=== PATIENT | female | born 1985 | race Caucasian/White ===

== ENCOUNTER 2017-01-21 15:06 | Emergency (ER) | payer OTHER, SELFPAY ==
[2017-01-21 15:36] LABS: #Eosinphils 0.2 thou/uL (0.0-0.7); #Lymphocytes 1.4 thou/uL (1.20-3.40); #Monocytes 0.5 thou/uL (0.11-0.59); #Neutrophils 4.5 thou/uL (1.40-6.50); %Basophils 0.6 % (0.0-1.0); %Eosinophils 3.5 % (0.0-10.0); %Lymphocytes 21.8 % (21.0-51.0); %Monocytes 6.9 % (0.0-10.0); Hematocrit 40.1 % (36.0-47.0); White Blood Cell (WBC) Count 6.6 thou/uL (4.8-10.8)
[2017-01-21 15:37] LABS: Bilirubin Negative (Negative); Blood, Urine Negative (Negative); Glucose, Urine (Dipstick) Negative (Negative); Ketone, Urine Negative (Negative); Nitrite Negative (Negative); Protein, Urine (Dipstick) Negative (Neg-Trace); Urobilinogen 0.2 mg/dL (0.2-1.0)
[2017-01-21 15:58] LABS: ALT (SGPT) 13 U/L (8-55); AST (SGOT) 14 U/L (5-34); Alkaline Phosphatase 40 U/L (40-150); Anion Gap 11 mmol/L (10-20); BUN (Urea Nitrogen) 7 mg/dL (7.0-18.7); Bilirubin, Total 0.3 mg/dL (0.2-1.2); Calc. Creatinine Clearance 0 mL/min (70-130); Calcium 9.5 mg/dL (7.8-10.44); Carbon Dioxide 25 mmol/L (22-29); Chloride 105 mmol/L (98-107); Estimated GFR-MDRD 61; Globulin 3.1 g/dL (2.4-3.5); Lipase 30 U/L (8-78); Protein, Total 7.4 g/dL (6.0-8.3)
[2017-01-21] MEDS ORDERED: Famotidine/PF 20 mg/2ml Vial ONE (16:20)
[2017-01-21] MEDS ORDERED: Metoclopramide HCl 10 MG/2 ML VIAL ONE (16:20)
[2017-01-21] MEDS ORDERED: Famotidine/PF 20 mg/2ml Vial SLOW IVP SCH (16:45)
--- NOTE | 2017-01-21 17:01 | ULT ---
ULTRASOUND ABDOMEN LIMITED: (RIGHT UPPER QUADRANT) HISTORY: 31-year-old female with right upper quadrant abdominal pain and emesis. FINDINGS: The gallbladder has normal wall thickness and has no evidence of gallstones or sludge. The hepatic e chogenicity is normal. The right kidney has normal echogenicity and has no hydronephrosis. The panc reas is visualized, although ultrasound is relatively insensitive for pancreatic pathology compared t o CT and MRI. There is no biliary dilation. The common duct caliber is 3 mm. IMPRESSION: Normal. alise POS: [facility]
[2017-01-21] MEDS ORDERED: Acetaminophen 325 MG/10.15 ML UDCUP ONE (17:54)
[2017-01-21] MEDS ORDERED: Famotidine 20 MG TAB ONE (17:54)
[2017-01-21] MEDS ORDERED: Metoclopramide HCl 10 MG TAB PO SCH (18:15)
== END 2017-01-21 18:19 | disposition home or self-care (01) ==
LOC: ERS 15:06
DX: O21.9 Vomiting of pregnancy, unspecified (principal); O99.89 Other specified diseases and conditions complicating pregnancy, childbirth and the puerperium; R19.7 Diarrhea, unspecified; O99.511 Diseases of the respiratory system complicating pregnancy, first trimester; J45.909 Unspecified asthma, uncomplicated
CPT/HCPCS: 36415; 76705; 80053; 81003; 83690; 85025; 96361; 96374; J2765; S0028

== ENCOUNTER 2017-11-20 12:36 | Outpatient (CLI) | payer OTHER ==
--- NOTE | 2017-11-20 14:41 | RAD ---
3 VIEWS LUMBAR SPINE: Date: 11/20/17 HISTORY: Fall 1.5-2 years ago resulting in herniated disc in lower back. Patient complains of severe right but tock and leg pain, with pain extending down right lower extremity. COMPARISON: Single lateral view of lumbar spine dated 03/11/16. FINDINGS: Vertebral body heights are within normal limits. No fracture or subluxation is seen on provided later al images. There is no abnormal translational motion seen between the flexion and extension views. No fracture is seen on the single provided lateral images. There has been no interval change compared t o the prior exam. IMPRESSION: Normal alignment of the lumbar spine with preservation of vertebral body heights. POS: [facility]
--- NOTE | 2017-11-20 15:43 | MRI ---
MRI LUMBAR SPINE NONCONTRAST: DATE: 11/20/17 HISTORY: 32-year-old female with M54.16 lumbar radiculopathy. COMPARISON: none FINDINGS: For the purposes of this report, it will be assumed that there are 5 lumbar-type vertebrae. The vert ebral body heights are maintained. Bilateral extrarenal pelves are dilated, especially the right. There is no significant dilation of th e renal calices. Perivertebral spaces are unremarkable. Bone marrow signal is normal. There is no spondylolisthesis. There is a mild lateral curvature. Conus medullaris terminates at L1-2. There is an incidental finding of minimal dilation of the central can al of the lower spinal cord isolated to the conus medullaris (minimal hydromyelia). There is no syrin x superior to that. The cauda equina is arranged in a symmetrical, normal distribution throughout the thecal sac. The findings by individual levels are as follows: T12-L1: Normal. L1-2: Normal. L2-3: Normal. L3-4: Normal. L4-5: Mild to moderate disc space narrowing. Disc desiccation. Diffuse disc bulge. Central and right paracentral focal small disc herniation which abuts and minimally displaces the right L5 nerve root. No central spinal canal stenosis despite this. No high grade neural foraminal stenosis. No high grad e degenerative facet changes. L5-S1: Mild to moderate disc space narrowing. Disc desiccation and diffuse disc bulge. Superimposed central and bilateral paracentral small disc herniation which indents the ventral aspect of the theca l sac without displacing nerve roots. No central stenosis. Mild to moderate bilateral neural foramina l stenosis. Mild bilateral degenerative facet changes. IMPRESSION: 1. Mild to moderate degenerative disc disease, and mild facet osteoarthrosis, at L4-5 and L5-S1. 2. At L4-5, there is a central and right paracentral focal disc herniation which mildly displaces th e right L5 nerve root. 3. Mild to moderate bilateral neural foraminal stenosis at L5-S1. 4. All levels superior to L4-5 are essentially normal, except for mild lateral curvature. JN R POS: [facility]
== END 2017-11-20 12:37 | disposition home or self-care (01) ==
LOC: TBSIIMAG 12:36
PROVIDERS: ATTEND Neurological Surgery
DX: M51.16 Intervertebral disc disorders with radiculopathy, lumbar region (principal); M47.26 Other spondylosis with radiculopathy, lumbar region; M51.37 Other intervertebral disc degeneration, lumbosacral region; M47.897 Other spondylosis, lumbosacral region; M99.83 Other biomechanical lesions of lumbar region
CPT/HCPCS: 72100; 72148

== ENCOUNTER 2018-02-07 19:22 | Emergency (ER) | payer OTHER ==
--- NOTE | 2018-02-07 20:09 | RAD ---
CHEST TWO VIEWS: HISTORY: Cough. FINDINGS: Heart size and mediastinum are within normal limits. Lungs are clear of infiltrates. There are slig ht scoliotic changes of the spine, convexed to the right. IMPRESSION: No active intrathoracic disease. POS: [facility]
== END 2018-02-07 21:16 | disposition home or self-care (01) ==
LOC: ERS 19:22
DX: J06.9 Acute upper respiratory infection, unspecified (principal)
CPT/HCPCS: 71046

== ENCOUNTER 2018-04-26 13:42 | Outpatient (CLI) | payer OTHER ==
--- NOTE | 2018-04-26 15:52 | RAD ---
CERVICAL SPINE 4 VIEWS: AP view obtained. Lateral views were obtained in the neutral, flexion, and extension positions. INDICATION: Neck pain. FINDINGS: Cervical vertebrae maintain normal height and alignment. Disk spaces are maintained. No abnormal gutierrez bluxation is seen with flexion or extension. Minimal degenerative spurring noted. IMPRESSION: Unremarkable cervical spine. POS: [facility]
--- NOTE | 2018-04-27 16:37 | MRI ---
MRI CERVICAL SPINE WITHOUT CONTRAST 04/27/18 HISTORY: Cervical pain. COMPARISON: Radiograph 04/26/18. FINDINGS: The cerebellar tonsils are at the level of the foramen magnum. Moderate reversal of normal cervical l ordosis likely positional. No cervical adenopathy. Flow voids are maintained. No marrow infiltrative process. Cord signal is normal. The levels are as follows: C2-3: Normal disc. No neural foraminal or spinal canal narrowing. C3-4: Normal disc. No neural foraminal or spinal canal narrowing. C4-5: Normal disc. No neural foraminal or spinal canal narrowing. Low grade uncinate process hypertro phy. C5-6: There are bilateral subforaminal and posterior disc osteophyte complexes, larger on the right. This causes mild bilateral neural foraminal narrowing. No significant facet arthrosis. Minimal effac ement of the ventral CSF space although the canal still measures approximately 1 cm. C6-7: Mild disc desiccation. Minimal disc osteophyte complex, broad based, without significant neural foraminal or spinal canal narrowing. IMPRESSION: Low grade spondylosis centered at C5-6 and C6-7. POS: [facility]
== END 2018-04-26 13:43 | disposition home or self-care (01) ==
LOC: SCSMRI 13:42
PROVIDERS: ATTEND Nurse Practitioner Family
DX: M47.22 Other spondylosis with radiculopathy, cervical region (principal)
CPT/HCPCS: 72050; 72141